=== PATIENT | male | born 1985 | race Two or more races ===

== ENCOUNTER 2016-11-02 22:35 | Emergency (ER) | payer OTHER ==
[2016-11-02] MEDS ORDERED: HYDROCODONE/ACETAMINOPHEN 5-325 MG TABLET PO ONE (23:45)
--- NOTE | 2016-11-02 23:48 | ER Document Report ---
ED Medical Screen (RME) - General Chief Complaint: Foot Injury Stated Complaint: RIGHT FOOT PAIN Notes: 31-year-old male, complaint of right leg and ankle pain with swelling after coming down hard running on the leg while running in basketball game. States he fell to the ground. No other injuries. TRAVEL OUTSIDE OF THE [place] IN LAST 30 DAYS: No - Related Data Allergies/Adverse Reactions: No Known Allergies Allergy (Unverified 11/02/16 23:41) Past Medical History - Social History Chew tobacco use (# tins/day): No Frequency of alcohol use: Occasional Drug Abuse: None Renal/ Medical History: Denies: Hx Peritoneal Dialysis Physical Exam - Vital signs Vitals: Temp Pulse Resp BP Pulse Ox 98.0 F 78 18 127/79 H 97 11/02/16 23:30 11/02/16 23:30 11/02/16 23:30 11/02/16 23:30 11/02/16 23:30 - Extremities General lower extremity: Other - slight swelling to right ankle. Pain to mid tibia and calf. Good cap refill, sensation present Course - Vital Signs Vital signs: Temp Pulse Resp BP Pulse Ox 98.0 F 78 18 127/79 H 97 11/02/16 23:30 11/02/16 23:30 11/02/16 23:30 11/02/16 23:30 11/02/16 23:30
[2016-11-03] MEDS ORDERED: HYDROCODONE/ACETAMINOPHEN 5-325 MG 6 TAB/DSPK PO PRN (03:02)
--- NOTE | 2016-11-03 03:08 | ER Document Report ---
HPI - HPI Patient complains to provider of: right leg pain Pain Level: 3 Context: 31-year-old male, complaint of right leg and ankle pain with swelling after an injury while playing basketball this evening. Patient states that he pushed back with his leg, tried to push off, felt a sharp pain in his leg. States he fell to the ground. No other injuries. Patient denies any other complaints, denies any daily medications or medical problems. - DERM Skin Color: Normal Past Medical History - General Information source: Patient - Social History Smoking Status: Never Smoker Chew tobacco use (# tins/day): No Frequency of alcohol use: Occasional Drug Abuse: None Lives with: Family Family History: Reviewed & Not Pertinent Patient has suicidal ideation: No Patient has homicidal ideation: No - Medical History Medical History: Negative Renal/ Medical History: Denies: Hx Peritoneal Dialysis Surgical Hx: Negative - Immunizations Immunizations up to date: Yes Hx Diphtheria, Pertussis, Tetanus Vaccination: Yes Vertical Provider Document - CONSTITUTIONAL General Appearance: WD/WN, Mild Distress - Patient walks with notable discomfort , limping on the right leg - INFECTION CONTROL TRAVEL OUTSIDE OF THE [place] IN LAST 30 DAYS: No - HEENT HEENT: Atraumatic, Normocephalic - NECK Neck: Normal Inspection - RESPIRATORY Respiratory: Breath Sounds Normal, No Respiratory Distress O2 Sat by Pulse Oximetry: 99 - CARDIOVASCULAR Cardiovascular: Regular Rate, Regular Rhythm - GI/ABDOMEN Gastrointestinal: Abdomen Soft, Abdomen Non-Tender - BACK Back: Normal Inspection - MUSCULOSKELETAL/EXTREMETIES Musculoskeletal/Extremeties: Tender - Tender to the medial right ankle with mild soft tissue swelling, normal foot exam with normal dorsalis pedis and capillary refill, normal sensation, negative Holman test, positive tenderness at the gastrocnemius with no significant ecchymosis or swelling at the area. Normal knee, hip exam. Course - Re-evaluation Re-evalutation: Image consistent with small avulsion fracture at the medial ankle in the location of patient's pain and swelling. Patient placed in air splint, given crutches, given consultation on avulsion fracture, refer to orthopedics, discussed return precautions. Patient states understanding and agreement. - Vital Signs Vital signs: Temp Pulse Resp BP Pulse Ox 98.3 F 79 14 130/75 H 99 11/03/16 02:02 11/03/16 02:02 11/03/16 02:02 11/03/16 02:02 11/03/16 02:02 - Diagnostic Test Radiology reviewed: Image reviewed, Reports reviewed Procedures - Immobilization right ankle Pre-Proc Neuro Vasc Exam: Normal Immobilizer type: Ankle stirrup Performed by: MAYCO Post-Proc Neuro Vasc Exam: Normal Alignment checked and good: Yes Discharge - Discharge Clinical Impression: Ankle pain Qualifiers: Laterality: right Chronicity: acute Qualified Code(s): M25.571 - Pain in right ankle and joints of right foot Leg pain Qualifiers: Laterality: right Qualified Code(s): M79.604 - Pain in right leg Condition: Stable Disposition: HOME, SELF-CARE Additional Instructions: Examination and workup is consistent with an avulsion injury at the ankle, this is a small piece of bone pulled off that causes swelling and pain, just needs time to heal, see additional instructions below. Examination is also consistent with a gastrocnemius (calf muscle) injury. Use the crutches, wear the splint, you can take off the splint to ice your ankle , take the naproxen as directed, elevate your foot when possible. If symptoms continue please follow-up with orthopedics for additional management. Return to emergency department for any concerning or worsening symptoms including severe swelling or pain to the area. Avulsion Fracture of the Ankle There is a small chip fracture in your ankle. This fracture was caused by stretching the joint ligaments, which pulled off a small piece of bone. This injury is treated much the same as a severe sprain. At first, you should elevate, rest, and apply ice packs to the leg. Often , only an ankle brace or tape is necessary while the chip fracture heals. Sometimes a chip fracture of this type requires a cast or walking boot. The treatment plan may change, depending on how your ankle progresses. Chip fractures usually do not fuse back onto the bone, but rather scar down to the bone surface. You will most likely see this bone fragment on future x-rays. It's important that you follow the treatment program as outlined for now, then follow up for re-evaluation as scheduled. Call the doctor or return at once if pain or swelling becomes severe, or if you develop other unusual symptoms. Prescriptions: Naproxen 500 mg PO BID #20 tablet Forms: Return to Work Referrals: JF CARRASQUILLO MD [ACTIVE STAFF] - Follow up in 1 week
[2016-11-03 03:58] VITALS: BP 126/66
== END 2016-11-03 03:55 | disposition home or self-care (01) ==
LOC: ER 22:35
DX: M25.571 Pain in right ankle and joints of right foot (principal); M79.604 Pain in right leg; X50.0XXA Overexertion from strenuous movement or load, initial encounter; Y93.67 Activity, basketball; M25.471 Effusion, right ankle
CPT/HCPCS: 99283; 73610; 73590; L1902

== ENCOUNTER 2018-11-08 02:25 | Emergency (ER) | payer OTHER ==
--- NOTE | 2018-11-08 06:00 | RADIOLOGY REPORT (SQ) ---
EXAM DESCRIPTION: XR CHEST 2 VIEWS COMPLETED DATE/TME: 11/08/2018 05:21 CLINICAL HISTORY: 33 years, Male, cough sob COMPARISON: None. NUMBER OF VIEWS: 2 TECHNIQUE: Frontal and lateral views of the chest LIMITATIONS: None. FINDINGS: Heart size normal. Lungs are clear. No pneumothorax IMPRESSION: Negative chest copyright 2010 [employer]- All Rights Reserved
--- NOTE | 2018-11-08 06:33 | ER Document Report ---
HPI - HPI Patient complains to provider of: Cough Time Seen by Provider: 11/08/18 06:17 Pain Level: 1 Context: Patient is a 33-year-old male presents to the emergency department for generalized cough, congestion, "could not fall asleep last night." Patient states he has had a generalized cough and congestion for the last week. He is denying any fevers. States he went to an urgent care on Tuesday and was diagnosed with an upper respiratory infection and started on Zyrtec. Patient states he was also given a nasal spray. States he has been using both but continues with a generalized dry cough. Past medical history: None Medications: Zyrtec, Flonase Allergies: None - CONSTITUTIONAL Constitutional: DENIES: Fever, Chills - CARDIOVASCULAR Cardiovascular: DENIES: Chest pain - RESPIRATORY Respiratory: REPORTS: Trouble Breathing, Coughing - yellow sputum Past Medical History - General Information source: Patient - Social History Smoking Status: Former Smoker Frequency of alcohol use: None Drug Abuse: None Family History: Reviewed & Not Pertinent Patient has suicidal ideation: No Patient has homicidal ideation: No Renal/ Medical History: Denies: Hx Peritoneal Dialysis - Immunizations Immunizations up to date: Yes Hx Diphtheria, Pertussis, Tetanus Vaccination: Yes Vertical Provider Document - CONSTITUTIONAL Agree With Documented VS: Yes Notes: GENERAL: Alert, interacts well. No acute distress. Patient does not cough while I am in the room. HEAD: Normocephalic, atraumatic. No frontal or maxillary sinus tenderness noted EYES: Pupils equal, round, and reactive to light. Extraocular movements intact. ENT: Oral mucosa moist, tongue midline. Nares patent, TM's intact, nonerythematous, nonbulging bilaterally. Pharynx within normal limits no palatal petechiae or exudate noted NECK: Full range of motion. Supple. Trachea midline.no lymphadenopathy appreciated LUNGS: Clear to auscultation bilaterally, no wheezes, rales, or rhonchi. No respiratory distress. HEART: Regular rate and rhythm. No murmur ABDOMEN: Soft, non-tender. Non-distended. Bowel sounds present in all 4 quadrants. EXTREMITIES: Moves all 4 extremities spontaneously. No edema, normal radial and dorsalis pedis pulses bilaterally. No cyanosis. BACK: no cervical, thoracic, lumbar midline tenderness. No saddle anesthesia, normal distal neurovascular exam. NEUROLOGICAL: Alert and oriented x3. Normal speech. cranial nerves II through XII grossly intact. PSYCH: Normal affect, normal mood. SKIN: Warm, dry, normal turgor. No rashes or lesions noted. - INFECTION CONTROL TRAVEL OUTSIDE OF THE [place] IN LAST 30 DAYS: No Course - Re-evaluation Re-evalutation: 11/08/18 06:31 Patient's chest x-ray reveals no signs of pneumonia, pneumothorax, rib fracture. Discussed use of at home Tessalon Perles and likely viral diagnosis. Discussed close follow-up with primary care provider and return precautions. Patient is afebrile, non-tachycardic, has not coughed in my presence and appears to be in no distress. - Vital Signs Vital signs: Temp Pulse Resp BP Pulse Ox 99.9 F 86 16 130/96 H 98 11/08/18 02:34 11/08/18 02:34 11/08/18 02:34 11/08/18 02:34 11/08/18 02:34 Discharge - Discharge Clinical Impression: Upper respiratory infection Qualifiers: URI type: unspecified viral URI Qualified Code(s): J06.9 - Acute upper respiratory infection, unspecified Condition: Stable Disposition: HOME, SELF-CARE Instructions: Upper Respiratory Illness ([facility]) Additional Instructions: As we discussed you have been seen and treated in the emergency department for an upper respiratory infection. Please take medications as prescribed. Please take [id number] Tylenol Motrin for generalized body aches and stay well- hydrated. Please follow-up with your primary care provider in the next 24-48 hours. Please return to the emergency room for any other concerning symptoms. Prescriptions: Benzonatate [Tessalon Perles 100 mg Capsule] 100 mg PO Q8HP PRN #40 capsule PRN Reason: Forms: Return to Work
[2018-11-08 06:47] VITALS: BP 119/80
== END 2018-11-08 06:46 | disposition home or self-care (01) ==
LOC: ER 02:25
DX: J06.9 Acute upper respiratory infection, unspecified (principal); B97.89 Other viral agents as the cause of diseases classified elsewhere; R05 Cough; Z87.891 Personal history of nicotine dependence
CPT/HCPCS: 71046; 99283